=== PATIENT | male | born 1995 ===

== ENCOUNTER 2017-04-09 11:16 | Emergency (ER) | payer OTHER ==
[2017-04-09 11:23] VITALS: BP 132/99; PULSE 80; RESP 20; TEMP 98; O2SAT 99
[2017-04-09] MEDS ORDERED: Sodium Chloride 0.9% 1,000 ML IV STA (12:07)
[2017-04-09 12:59] LABS: BASO % 0.3 % (0.0-2.0); EOS # 0.1 K/uL (0.0-0.7); EOS % 0.5 % (0.0-4.0); HEMATOCRIT 45.7 % (35.0-51.0); LYMPH # 2.2 K/uL (1.0-4.3); LYMPH % 16.6 % (20.0-40.0); MEAN CORPUSCULAR HEMOGLOBIN 29.4 pg (27.0-31.0); MEAN CORPUSCULAR HGB CONC 33.4 g/dL (33.0-37.0); MEAN PLATELET VOLUME 9.2 fl (7.2-11.7); MONO # 0.7 K/uL (0.0-0.8); MONO % 5.4 % (0.0-10.0); NEUT # 10.2 K/uL (1.8-7.0); NEUT % 77.2 % (50.0-75.0); RED CELL DISTRIBUTION WIDTH 13.3 % (11.5-14.5); WHITE BLOOD COUNT 13.2 K/uL (4.8-10.8)
[2017-04-09 13:10] LABS: RBC URINE 1 /hpf (0-3); URINE BILIRUBIN NEGATIVE (NEGATIVE); URINE BLOOD NEGATIVE (NEGATIVE); URINE COLOR STRAW (YELLOW); URINE GLUCOSE (UA) NEG (Normal); URINE KETONE NEGATIVE (NEGATIVE); URINE LEUKOCYTE ESTERASE NEG Leu/uL (Negative); URINE PROTEIN NEGATIVE (NEGATIVE); URINE UROBILINOGEN 0.2-1.0 mg/dL (0.2-1.0)
[2017-04-09 13:12] LABS: ALB/GLOB RATIO 1.6 (1.0-2.1); ALKALINE PHOSPHATASE 83 U/L (38-126); ALT/SGPT 41 U/L (21-72); AST/SGOT 30 U/L (17-59); BILIRUBIN,TOTAL 0.6 mg/dl (0.2-1.3); BLOOD UREA NITROGEN 14 mg/dl (9-20); CALCIUM 9.3 mg/dL (8.4-10.2); CARBON DIOXIDE 26 mmol/L (22-30); CHLORIDE 102 mmol/L (98-107); GFR AFRICAN-AMERICAN > 60; GLUCOSE,RANDOM 109 mg/dL (75-110); POTASSIUM 4.2 MMOL/L (3.6-5.0); SODIUM 139 mmol/l (132-148); TOTAL PROTEIN 7.9 G/DL (6.3-8.2)
[2017-04-09 13:19] LABS: PARTIAL THROMBOPLASTIN TIME 24.6 Seconds (25.6-37.1)
--- NOTE | 2017-04-09 13:40 | ED PDOC ---
HPI: Trauma/Fall - HPI Time Seen by Provider: 04/09/17 11:18 Chief Complaint (Nursing): Trauma Chief Complaint (Provider): Trauma History Per: Patient History/Exam Limitations: no limitations Onset/Duration Of Symptoms: Days (x1) Additional Complaint(s): Octavio Billingsley is a 21 year old male with no significant past medical history who presents to the ED due to abdominal pain s/p fall from height. 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 Denies head trauma, loss of consciousness, and neck pain. Now complaining of left sided pain. PMD: Non-[facility] Provider Past Medical History Reviewed: Historical Data, Nursing Documentation, Vital Signs Vital Signs: Last Vital Signs Temp 98.0 F 04/09/17 11:20 Pulse 80 04/09/17 11:20 Resp 20 04/09/17 11:20 BP 132/99 H 04/09/17 11:20 Pulse Ox 99 04/09/17 11:20 - Medical History PMH: No Chronic Diseases - Surgical History Surgical History: No Surg Hx - Family History Family History: States: Unknown Family Hx - Social History Current smoker - smoking cessation education provided: No - Home Medications Home Medications: Ambulatory Orders Medication Instructions Recorded oxyCODONE/Acetaminophen [Percocet 1 tab PO Q6 PRN #20 tab 04/09/17 5/325 mg Tab] - Allergies Allergies/Adverse Reactions: Allergies Allergy/AdvReac Type Severity Reaction Status Date / Time No Known Allergies Allergy Verified 04/09/17 11:20 Review of Systems ROS Statement: Except As Marked, All Systems Reviewed And Found Negative Musculoskeletal: Positive for: Other (left side pain). Negative for: Neck Pain Physical Exam - Reviewed Nursing Documentation Reviewed: Yes Vital Signs Reviewed: Yes - Physical Exam Appears: Positive for: Well, Non-toxic, No Acute Distress Head Exam: Positive for: ATRAUMATIC, NORMAL INSPECTION, NORMOCEPHALIC Skin: Positive for: Normal Color, Warm, Dry Eye Exam: Positive for: EOMI, Normal appearance, PERRL Neck: Positive for: Normal, Painless ROM, Supple Cardiovascular/Chest: Positive for: Regular Rate, Rhythm. Negative for: Murmur Respiratory: Positive for: Normal Breath Sounds. Negative for: Respiratory Distress Gastrointestinal/Abdominal: Positive for: Tenderness (LLQ, LUQ), Other (Left lateral abdominal wall abrasion) Back: Positive for: Normal Inspection. Negative for: L CVA Tenderness, R CVA Tenderness, Vertebral Tenderness Extremity: Positive for: Normal ROM. Negative for: Pedal Edema, Deformity, Other (Ecchymosis) Neurologic/Psych: Positive for: Alert, Oriented. Negative for: Motor/Sensory Deficits - Laboratory Results Result Diagrams: 04/09/17 12:50 04/09/17 12:50 - ECG O2 Sat by Pulse Oximetry: 99 (RA) Pulse Ox Interpretation: Normal Medical Decision Making Medical Decision Making: Time: 12:07 Initial Impression: Abdominal pain s/p fall from height Plan: --CT chest, abd, pel w/ contrast --CMP --ED urine dipstick --CBC w/ differential --Partial thromboplastin time --Prothrombin time --Morphine 2 mg IV --Sodium Chloride 1,000 ml IV --Urinalysis --Reevaluation Time: 16:00 CT Chest, abdomen, pelvis with contrast FINDINGS: CT CHEST WITH CONTRAST: LUNGS: The lungs are well inflated and clear. There is dependent atelectasis in the posterior lower lobes. No nodule, mass or consolidation. There are no endobronchial lesions. MEDIASTINUM: No pericardial effusion, pneumo or hemo mediastinum. Normal caliber aorta and pulmonary arterial trunk. No aortic dissection. Normal size heart. LYMPH NODES: No pathologic lymphadenopathy. PLEURA: No pneumothorax. No pleural fluid. BONES: Unremarkable. OTHER FINDINGS: None. CT ABDOMEN AND PELVIS: LIVER: Normal in size with homogeneous enhancement. No gross lesion or ductal dilatation. GALLBLADDER AND BILE DUCTS: No calcified gallstones. PANCREAS: Normal in size with homogeneous enhancement. No gross lesion or ductal dilatation. SPLEEN: Normal in size. No evidence of splenic laceration or subcapsular hematoma. ADRENALS: No discrete nodule. KIDNEYS AND URETERS: Normal in size with homogeneous enhancement. No hydronephrosis. No solid mass. No evidence of solid organ injury. VASCULATURE: No aortic aneurysm. BOWEL: The small bowel loops are normal in caliber. There is moderate amount of stool in the colon. No bowel dilatation or obstruction. APPENDIX: Normal appendix. PERITONEUM: No free fluid. No free air. LYMPH NODES: No enlarged lymph nodes. BLADDER: Grossly normal in appearance. REPRODUCTIVE: The prostate gland is normal in size. BONES: No acute fracture. OTHER FINDINGS: There is stranding of the left lower lateral superficial and deep subcutaneous fat with thickening of the fascia. No evidence of discrete hematoma. IMPRESSION: 1. No evidence of acute rib fracture, pneumothorax or lung contusion. 2. No evidence of splenic injury, solid organ injury in the abdomen or hemoperitoneum. 3. Contusion in the left lower lateral superficial and deep subcutaneous fat without evidence of hematoma. Scribe Attestation: Documented by Osmany Pham acting as a scribe for Salina Ramirez MD. Scribe Attestation: All medical record entries made by the Scribe were at my direction and personally dictated by me. I have reviewed the chart and agree that the record accurately reflects my personal performance of the history, physical exam, medical decision making, and the department course for this patient. I have also personally directed, reviewed, and agree with the discharge instructions and disposition. Disposition - Clinical Impression Clinical Impression: Contusion of flank, Fall from scaffold - Disposition Referrals: Shawn Borges [Outside] Disposition: Routine/Home Disposition Time: 17:04 Condition: STABLE Additional Instructions: FOLLOW-UP WITH [employer]. Prescriptions: oxyCODONE/Acetaminophen [Percocet 5/325 mg Tab] 1 tab PO Q6 PRN #20 tab PRN Reason: Pain, Moderate (4-7) Instructions: Contusion in Adults (ED) Forms: [employer] (Moroccan) Print Language: GREEK
[2017-04-09] MEDS ORDERED: Sodium Chloride 0.9% 50 ML IV ONE (15:25)
[2017-04-09] MEDS ORDERED: Iohexol 300 100 ML IJ ONE (15:25)
--- NOTE | 2017-04-09 17:02 | CT ---
PROCEDURE: CT Chest, Abdomen and Pelvis with intravenous contrast HISTORY: L sided rib/abd pain, fall from 12 feet COMPARISON: None. TECHNIQUE: CT scan of the chest, abdomen and pelvis was performed after intravenous administration of contrast. Oral contrast was not administered. Coronal and sagittal reformatted images were obtained. IV dose administered: 95 cc Omnipaque 320 Radiation dose: Total exam DLP = 772.60 mGy-cm. This CT exam was performed using one or more of the following dose reduction techniques: Automated exposure control, adjustment of the mA and/or kV according to patient size, and/or use of iterative reconstruction technique. FINDINGS: CT CHEST WITH CONTRAST: LUNGS: The lungs are well inflated and clear. There is dependent atelectasis in the posterior lower lobes. No nodule, mass or consolidation. There are no endobronchial lesions. MEDIASTINUM: No pericardial effusion, pneumo or hemo mediastinum. Normal caliber aorta and pulmonary arterial trunk. No aortic dissection. Normal size heart. LYMPH NODES: No pathologic lymphadenopathy. PLEURA: No pneumothorax. No pleural fluid. BONES: Unremarkable. OTHER FINDINGS: None. CT ABDOMEN AND PELVIS: LIVER: Normal in size with homogeneous enhancement. No gross lesion or ductal dilatation. GALLBLADDER AND BILE DUCTS: No calcified gallstones. PANCREAS: Normal in size with homogeneous enhancement. No gross lesion or ductal dilatation. SPLEEN: Normal in size. No evidence of splenic laceration or subcapsular hematoma. ADRENALS: No discrete nodule. KIDNEYS AND URETERS: Normal in size with homogeneous enhancement. No hydronephrosis. No solid mass. No evidence of solid organ injury. VASCULATURE: No aortic aneurysm. BOWEL: The small bowel loops are normal in caliber. There is moderate amount of stool in the colon. No bowel dilatation or obstruction. APPENDIX: Normal appendix. PERITONEUM: No free fluid. No free air. LYMPH NODES: No enlarged lymph nodes. BLADDER: Grossly normal in appearance. REPRODUCTIVE: The prostate gland is normal in size. BONES: No acute fracture. OTHER FINDINGS: There is stranding of the left lower lateral superficial and deep subcutaneous fat with thickening of the fascia. No evidence of discrete hematoma. IMPRESSION: 1. No evidence of acute rib fracture, pneumothorax or lung contusion. 2. No evidence of splenic injury, solid organ injury in the abdomen or hemoperitoneum. 3. Contusion in the left lower lateral superficial and deep subcutaneous fat without evidence of hematoma.
== END 2017-04-09 17:44 | disposition home or self-care (01) ==
LOC: H.ER 11:16
DX: S30.1XXA Contusion of abdominal wall, initial encounter (principal); S00.532A Contusion of oral cavity, initial encounter; W12.XXXA Fall on and from scaffolding, initial encounter; Y99.0 Civilian activity done for income or pay
CPT/HCPCS: 71260; 74177; 80053; 81003; 85025; 85610; 85730; 96374; 99283; J1170; J2270; J7040; Q9967